=== PATIENT | male | born 2000 | race Two or more races ===

== ENCOUNTER → 2024-04-29 | Outpatient (CLI) | payer BC, SELFPAY ==
--- NOTE | 2024-04-29 14:41 | XR_ITS ---
Examination: Duplex scan of the lower extremity, unilateral right complete Date and time of exam: April 29, 2024 1458 hrs. Indications: Tenderness in the right leg with palpable lump in the upper thigh noticed beginning one week ago Technique: Duplex scan of the extremity veins using B-mode/grayscale imaging and Doppler spectral analysis and color flow Attention is directed to internal echogenicity, compression and augmentation involving these veins, color flow assessment, spectral analysis Findings: Major deep venous structures in the extremity demonstrate normal course and caliber. There is no evidence of deep vein thrombosis. Normal color flow and spectral analysis Enlarged lymph node anterior to the right proximal superficial femoral vein, 4.4 x 2.6 x 3.1 cm Impression: Negative for DVT.. Prominent upper thigh lymph node, consider CT scan abdomen pelvis post intravenous contrast follow-up to assess for lymphadenopathy
[2024-04-29 16:48] LABS: Basophils # (Auto) 0.1 Thou/mm3 (0.0-0.2); Basophils % (Auto) 1 % (0-2.5); Eosinophils # (Auto) 0.2 Thou/mm3 (0.0-0.5); Eosinophils % (Auto) 2 % (0-10); Hematocrit 44.9 % (41.0-53.0); Hemoglobin 15.8 g/dL (13.5-16.0); Immature Granulocytes % (Auto) 1 % (0-0); Immature Granulocytes Auto 0.08 Thou/mm3 (0.00-0.00); Lymphocytes # (Auto) 4.4 Thou/mm3 (1.0-4.8); Lymphocytes % (Auto) 28 % (10-50); Mean Corpuscular HGB Conc 35.2 g/dl (31.0-37.0); Mean Corpuscular Hemoglobin 29.8 pg (25.0-35.0); Mean Corpuscular Volume 85 fL (80-100); Monocytes # (Auto) 1.1 Thou/mm3 (0.0-0.8); Monocytes % (Auto) 7 % (0-12); Neutrophils # (Auto) 9.7 Thou/mm3 (1.8-7.7); Neutrophils % (Auto) 62 % (37-80); Nucleated Red Blood Cell % 0 /100 WBC (0); Platelet Count 307 Thou/mm3 (140-440); RDW Standard Deviation 37.2 fL (35.1-43.9); Red Blood Count 5.31 Miln/mm3 (4.50-5.90); White Blood Count 15.6 Thou/mm3 (3.8-10.6)
== END | disposition home or self-care (01) ==
LOC: CDIM 14:36 → COPL 15:22
PROVIDERS: PCP Physician Assistant; Referring Provider Physician Assistant; Visit Provider Radiology Diagnostic Radiology
DX: R22.41 Localized swelling, mass and lump, right lower limb (principal)
CPT/HCPCS: 36415; 85025; 93971

== ENCOUNTER → 2024-05-17 | Outpatient (CLI) | payer BC, SELFPAY ==
--- NOTE | 2024-05-17 16:00 | XR_ITS ---
Examination: Arterial duplex lower extremity study, unilateral right lower extremity Date and time of exam: 2024 1630 hours INDICATIONS: Palpable lump under the right thigh with swelling and tenderness to touch one month Findings: Duplex sonographic imaging of the lower extremity arteries using B-mode/Bright scale imaging and Doppler spectral analysis and color flow. Ankle brachial indices have been recorded. Right common femoral artery demonstrates triphasic flow. Right superficial femoral artery demonstrates triphasic flow. Right popliteal artery demonstrates triphasic flow. Right posterior tibial artery demonstrated triphasic flow. Right ankle/brachial index is 1.0. Impression: Negative study Consider ultrasound soft tissue at the abnormality site
== END | disposition home or self-care (01) ==
PROVIDERS: PCP Physician Assistant; Referring Provider Physician Assistant; Visit Provider Physician Assistant
DX: R22.41 Localized swelling, mass and lump, right lower limb (principal)
CPT/HCPCS: 93926

== ENCOUNTER → 2024-06-09 | Outpatient (CLI) | payer BC, SELFPAY ==
--- NOTE | 2024-06-09 09:00 | XR_ITS ---
Examination: CT abdomen, without intravenous contrast. CT pelvis, without intravenous contrast. CT abdomen, with intravenous contrast. CT pelvis, with intravenous contrast. 2-D sagittal coronal reconstructions. Date and time of exam:June 09, 2024 0926 hrs. Indications: Right lower abdominal pain and palpable masses in the right groin pain 2 months CTDI: vol (mGy) 21.5 DLP: (mGycm) 1300 Technique: Multiple 3.0 axial images of the abdomen and pelvis without intravenous contrast, 3.0 mm slice thickness. Multiple 3.0 postcontrast images abdomen and pelvis also obtained, post intravenous injection 60 cc [id number] 2-D sagittal and coronal reconstructions. Low dose protocols were performed. One or more of the following dose reduction techniques were used; automated exposure control, adjustment of the mA and/or KV according to patient size, use of iterative reconstruction technique. Findings: Fatty infiltration throughout the liver No focal liver or splenic lesions No gallstones No pancreatic or adrenal mass No renal or ureteral calculi Abdominal lymphadenopathy, pericaval periaortic, the largest pericaval lymph node 15 mm, para-aortic lymph node 9 mm Bilateral common iliac lymph nodes, the largest in the right common iliac artery distribution 14 mm Subcentimeter perirectal lymph nodes Bilateral external iliac lymph nodes, the largest on the right side 14 mm Numerous common femoral lymph nodes, the largest on the right side 19 mm No bowel obstruction No renal or ureteral calculi No pericecal inflammatory change Urinary bladder intact Normal appendix Impression: Significant abdominal pelvic lymphadenopathy, differential would include Hodgkin's disease, non-Hodgkin's lymphoma Recommend PET CT scan follow-up
== END | disposition home or self-care (01) ==
PROVIDERS: PCP Family Medicine; Referring Provider Physician Assistant; Visit Provider Physician Assistant
DX: R59.0 Localized enlarged lymph nodes (principal)
CPT/HCPCS: 74178; A4649; Q9967

== ENCOUNTER 2024-07-13 08:47 | Outpatient (CLI) | payer BC, SELFPAY ==
[2024-07-05 12:31] VITALS: BMI 35.7
[2024-07-06 10:20] LABS: Basophils # (Auto) 0.1 Thou/mm3 (0.0-0.2); Basophils % (Auto) 1 % (0-2.5); Eosinophils # (Auto) 0.2 Thou/mm3 (0.0-0.5); Eosinophils % (Auto) 2 % (0-10); Hematocrit 47.5 % (41.0-53.0); Hemoglobin 16.4 g/dL (13.5-16.0); Immature Granulocytes % (Auto) 0 % (0-0); Immature Granulocytes Auto 0.04 Thou/mm3 (0.00-0.00); Lymphocytes # (Auto) 3.7 Thou/mm3 (1.0-4.8); Lymphocytes % (Auto) 41 % (10-50); Mean Corpuscular HGB Conc 34.5 g/dl (31.0-37.0); Mean Corpuscular Hemoglobin 29.6 pg (25.0-35.0); Mean Corpuscular Volume 86 fL (80-100); Monocytes # (Auto) 0.7 Thou/mm3 (0.0-0.8); Monocytes % (Auto) 7 % (0-12); Neutrophils # (Auto) 4.3 Thou/mm3 (1.8-7.7); Neutrophils % (Auto) 48 % (37-80); Nucleated Red Blood Cell % 0 /100 WBC (0); Platelet Count 267 Thou/mm3 (140-440); RDW Standard Deviation 39.6 fL (35.1-43.9); Red Blood Count 5.54 Miln/mm3 (4.50-5.90)
[2024-07-06 10:29] LABS: Partial Thromboplastin Time 26.3 Seconds (22.0-36.0); Prothrombin Time 10.5 Seconds (9.0-12.2)
[2024-07-13] VITALS (11 sets, daily range): BP systolic 105–152; BP diastolic 51–89; PULSE 68–103; RESP 12–20; TEMP 36.7–36.8; O2SAT 92–100
--- NOTE | 2024-07-13 | XR_ITS ---
Examination: CT-guided percutaneous biopsy right common femoral lymph node CT pelvis without intravenous contrast Date and time of procedure: July 13, 2024 0920 hours INDICATIONS: Significant pelvic lymphadenopathy on CT abdomen pelvis June 09, 2024 including common femoral lymph nodes Informed consent provided. A timeout was completed verifying correct patient, procedure, site and positioning. . Technique: Axial 3 mm sections were obtained for localization of a right common femoral lymph node Appropriate area is marked. The patient's site was prepped and draped in sterile fashion Maximal sterile barrier technique utilized, including hand hygiene Local anesthesia was obtained with 1% lidocaine. Low dose protocols were performed. One or more of the following dose reduction techniques were used; automated exposure control, adjustment of the mA and/or KV according to patient size, use of iterative reconstruction technique. Utilizing CT fluoroscopic guidance 5 core biopsies obtained with an 18-gauge core biopsy needle Patient appears in stable condition during this procedure. At completion of the procedure, the patient is in satisfactory condition. Estimated blood loss 0 cc Complete pathology report to follow. Impression: Successful CT-guided percutaneous core biopsy right common femoral lymph node
[2024-07-13] MEDS: SODIUM CHLORIDE 0.9% 500 ML 500 ML 20 ML IV (09:32)
[2024-07-13] MEDS: fentaNYL CIT INJ 50 mCg/ML AMP 2ML 100 MCG IV (09:36)
== END 2024-07-13 11:04 | disposition home or self-care (01) ==
LOC: SCAT 08:47
PROVIDERS: Radiology Diagnostic Radiology; PCP Physician Assistant; Referring Provider Physician Assistant; Visit Provider Physician Assistant
DX: R59.9 Enlarged lymph nodes, unspecified (principal); Z01.812 Encounter for preprocedural laboratory examination
CPT/HCPCS: 38505; 36415; 77012; 85025; 85610; 85730; J3010; J7040

== ENCOUNTER 2024-07-21 11:02 | Outpatient (RCR) | payer BC, SELFPAY ==
--- NOTE | 2024-07-21 11:56 | CTCCONSULT_ITS ---
[facility] [address] [place], [place] [address] Consultation Note Date: 07/21/2024 MR#: [id number] Name: LUDA OLIVA : 2000 Dx: R59.0 Localized enlarged lymph nodes Attending physician. NATALIE Kirby/Sergey Perez MD Reason for consultation. Patient with malignant appearing adenopathy in abdominal pelvic region referred to the cancer treatment center. History of Present Illness: Patient is a 24-year-old gentleman with abdominal pain and palpable mass in the right groin had CT abdomen pelvis ordered on 06/09/2024. This showed significant abdominal pelvic adenopathy pericaval para- aortic bilateral common iliac right common iliac artery bilateral external iliac and numerous common femoral lymph nodes largest on right side 19 mm. Labs drawn on 04/29/2024 WBC 15.6 hemoglobin 15.[address]-guided biopsy right common femoral lymph node area which was benign lymphoid tissue with follicular hyperplasia. Patient feels that the right groin node has shrunk by about two thirds compared to earlier. Patient denies fever night sweats weight loss. Past Medical History: Prior ear infections and allergies. 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 There is no testicular enlargement bilaterally. Assessment: #1. Possible malignancy involving abdomen pelvis. #2. The fact that the right groin node shrank by more than half according to patient and biopsy was negative is a bit reassuring, however there are still malignant appearing lymphadenopathy in other parts of the pelvis and abdomen. #2. Will order PET/CT and biopsy another site in pelvic abdominal area.. #3. Standard labs along with LDH uric acid. Tumor markers Beta-HCG CEA alpha-fetoprotein #4. Follow-up 1 month. Thank for allowing me to evaluate this patient. Cc: Sergey Perez MD Electronically signed by: Samuel Lopez MD, DABR 07/21/2024 11:53 AM
== END 2024-08-10 23:59 | disposition home or self-care (01) ==
LOC: SCTC 11:02
PROVIDERS: PCP Nurse Practitioner Family; Referring Provider Physician Assistant; Visit Provider Radiology Therapeutic Radiology
DX: R59.1 Generalized enlarged lymph nodes (principal)
CPT/HCPCS: 99213; G0463

== ENCOUNTER → 2024-08-11 | Outpatient (CLI) | payer BC, SELFPAY ==
--- NOTE | 2024-08-11 10:03 | XR_ITS ---
Examination: Testicular sonography complete TECHNIQUE: Grayscale sonographic images testes, assessment arterial inflow venous outflow Doppler spectral analysis carful analysis Exam date and time: August 11, 2024 1021 hours INDICATIONS: Patient states palpable left left testicle note is beginning 2 weeks ago. FINDINGS: Right testis 4.5 cm epididymis 13 mm Arterial flow testicle. No testicular mass Left testis 4.3 cm epididymis 14 mm Arterial flow testicle. No testicular mass IMPRESSION: Negative study
== END | disposition home or self-care (01) ==
PROVIDERS: PCP Family Medicine; Referring Provider Family Medicine; Visit Provider Family Medicine
DX: N50.819 Testicular pain, unspecified (principal)
CPT/HCPCS: 76870

== ENCOUNTER → 2024-09-01 | Outpatient (CLI) | payer BC, SELFPAY ==
--- NOTE | 2024-09-01 08:00 | XR_ITS ---
EXAMINATION: PET/CT FUSION SKULL TO THIGH EXAM DATE AND TIME: September 01, [address] abdomen pelvis June 09, 2024 INDICATIONS: Diagnosis significant abdominal pelvic lymphadenopathy on CT abdomen pelvis June 09, 2024, staging CTDI:vol (mGy) 4.14 DLP: (mGycm) 378 PROCEDURE: 16.1 mCi FDG was administered intravenously To allow for distribution and uptake of radiotracer, the patient was allowed to rest quietly in a shielded room. Imaging was performed on an integrated 16-slice PET/CT scanner, with scanning from the skull base to the mid thigh. Serum blood glucose at the time of the injection was measured 122 mg/dL. CT scanning was performed without oral or intravenous contrast material. FINDINGS: Head and Neck: There is no jordana hypermetabolism in the neck. The visualized portions of the brain are normal in appearance on CT. Chest: There is no jordana hypermetabolism in the chest. There are no pulmonary nodules. Abdomen and Pelvis: Non hypermetabolic 7 mm left lateral periaortic lymph node 4 mm left lateral periaortic lymph node 4 mm left lateral periaortic lymph node 3 mm left lateral periaortic lymph node 3 mm left common iliac lymph node 8mm non hypermetabolic right common iliac lymph node Musculoskeletal: Marrow uptake is within normal range. IMPRESSION: Non hypermetabolic abdominal and pelvic lymphadenopathy as above Recommend 6 month follow-up CT abdomen pelvis post intravenous contrast
== END | disposition home or self-care (01) ==
LOC: CDIM 07:48
PROVIDERS: PCP Family Medicine; Referring Provider Radiology Therapeutic Radiology; Visit Provider Radiology Therapeutic Radiology
DX: R59.0 Localized enlarged lymph nodes (principal)
CPT/HCPCS: 78815; A9552

== ENCOUNTER 2024-09-29 08:05 | Outpatient (RCR) | payer BC, SELFPAY ==
--- NOTE | 2024-09-29 08:42 | CTCFLWUP_ITS ---
[facility] [address] [place], [place] [address] FOLLOW-UP NOTE Date: 09/29/2024 MR#: [id number] Name: DHRUV OLIVA : 2000 Dx: R59.0 Localized enlarged lymph nodes Identification. Patient with malignant appearing adenopathy in abdominal pelvic region following CT scan of 06/09/2024. Underwent a CT-guided biopsy of the right common femoral lymph node which was benign 08-05. When examined for the first time 07/21/2024 the right mass appeared to be shrinking. PET scan performed 09/01/2024 revealed non-hypermetabolic abdominal and pelvic lymphadenopathy; 7 mm left lateral Santos lymph node 8 mm non-hypermetabolic right common iliac lymph node and subcentimeter lymph nodes in the lateral periaortic and left common iliac node sites. As I examined patient's groin area there was no palpable adenopathy. I I had ordered standard labs Beta-HCG alpha-fetoprotein LDH 2 months ago but for some reason this could not be located in terms of results. This will be repeated again and I will inform him of the results. If the results are unremarkable I will see him again in 6 months time. Electronically signed by: Samuel Lopez M.D. 09/29/2024 8:40 AM
--- NOTE | 2024-09-30 10:05 | CTCFLWUP_ITS ---
[facility] [address] [place], [place] [address] FOLLOW-UP NOTE Date: 09/30/2024 MR#: [id number] Name: DHRUV OLIVA : 2000 Dx: R59.0 Localized enlarged lymph nodes Based on recent radiographic and clinical findings informed patient over the phone that it is unlikely that he has a malignancy. Reminded him about the elevated liver functions of AST ALT and this should be followed by his primary care provider. Copies will be sent to his primary care provider. Electronically signed by: Samuel Lopez M.D. 09/30/2024 10:02 AM
== END 2024-10-10 23:59 | disposition home or self-care (01) ==
LOC: SCTC 08:05
PROVIDERS: PCP Family Medicine; Referring Provider Family Medicine; Visit Provider Radiology Therapeutic Radiology
DX: R59.0 Localized enlarged lymph nodes (principal)
CPT/HCPCS: 99212; G0463

== ENCOUNTER → 2024-09-29 | Outpatient (CLI) | payer BC, SELFPAY ==
[2024-09-29 10:36] LABS: Basophils % (Auto) 0 % (0-2.5); Eosinophils # (Auto) 0.1 Thou/mm3 (0.0-0.5); Eosinophils % (Auto) 1 % (0-10); Hemoglobin 16.4 g/dL (13.5-16.0); Immature Granulocytes % (Auto) 0 % (0-0); Immature Granulocytes Auto 0.03 Thou/mm3 (0.00-0.00); Lymphocytes # (Auto) 3.2 Thou/mm3 (1.0-4.8); Lymphocytes % (Auto) 36 % (10-50); Mean Corpuscular HGB Conc 34.9 g/dl (31.0-37.0); Mean Corpuscular Hemoglobin 29.8 pg (25.0-35.0); Mean Corpuscular Volume 85 fL (80-100); Monocytes # (Auto) 0.6 Thou/mm3 (0.0-0.8); Monocytes % (Auto) 6 % (0-12); Neutrophils % (Auto) 56 % (37-80); Nucleated Red Blood Cell % 0 /100 WBC (0); Platelet Count 291 Thou/mm3 (140-440); RDW Standard Deviation 39.2 fL (35.1-43.9); Red Blood Count 5.51 Miln/mm3 (4.50-5.90)
[2024-09-29 10:53] LABS: Alanine Aminotransferase 237 U/L (10-49); Albumin, Serum 4.6 gm/dL (3.5-5.0); Albumin/Globulin Ratio 1.9 (1.2-2.2); Alkaline Phosphatase 55 U/L (46-116); Anion Gap 8 (7-16); Aspartate Amino Transferase 75 U/L (0-34); BUN/Creatinine Ratio 12 Ratio (12-20); Bilirubin,Total 0.8 mg/dL (0.3-1.2); Blood Urea Nitrogen 11 mg/dL (9-23); Calcium 9.4 mg/dL (8.3-10.6); Calcium (Corrected) 9.4 mg/dL (8.5-10.1); Carbon Dioxide 30.1 mMol/L (20.0-31.0); Chloride 103 mMol/L (98-107); Creatinine (Component) 0.9 mg/dL (0.6-1.3); Globulin 2.4 gm/dL (2.3-3.5); Glucose 101 mg/dL (74-106); LDH (Lactate Dehydrogenase) 264 U/L (120-246); Osmolality,Calculated 280 (275-295); Potassium 4.2 mMol/L (3.4-5.1); Sodium 141 mMol/L (136-145); eGFR > 60 See Note
[2024-09-29 10:55] LABS: Carcinoembryonic Antigen 0.5 ng/mL (0.0-5.0)
[2024-10-04 07:05] LABS: HCG Total,Male (Tumor Marker)* <5 mIU/mL (<5)
== END | disposition home or self-care (01) ==
PROVIDERS: PCP Radiology Therapeutic Radiology; Referring Provider Radiology Therapeutic Radiology; Visit Provider Radiology Therapeutic Radiology
DX: R59.0 Localized enlarged lymph nodes (principal)
CPT/HCPCS: 36415; 80053; 82105; 82378; 83615; 84702; 85025